=== PATIENT | female | born 1945 | race Caucasian/White ===

== ENCOUNTER 2022-04-27 12:56 | Day surgery (SDC) | payer MEDICARE ==
[~2022-04-27] VITALS: Ht 157.5 cm; Wt 88.5 kg
[2022-04-27] VITALS (8 sets, daily range): BP systolic 100–186; BP diastolic 32–80
[~2022-04-27 12:56] MED LIST: ALBU18HF2 INH; AMLO5TAB PO; ATOR80TA PO; ATR0.5NEB NEB; CARV25TA3 PO; EZET10TA6 PO; FLUT1BLS4 PO; FURO80TA3 PO; HYDR-4070 PO; LEVO25TA2 PO; LISI40TA13 PO; OMEP20CA15 PO; POTA-82 PO; WARF2.5T82 PO
[2022-04-27] MEDS ORDERED: LORazepam 0.5 MG tablet PO PRN (13:20)
[2022-04-27] MEDS ORDERED: normal saline 1,000 ML IV SCH (13:20)
[2022-04-27] MEDS ORDERED: ALBU2.5V13 (13:37)
[2022-04-27] MEDS ORDERED: FURO80TA3 PO (13:42)
[2022-04-27] MEDS ORDERED: HYDR-4070 PO (13:43)
[2022-04-27 14:03] LABS: ALBUMIN 2.8 G/DL (3.4-5.0); ANION GAP 10 (8-16); APTT 34 SECONDS (22-32); BLOOD UREA NITROGEN 42 MG/DL (7-18); BUN/CREATININE RATIO 17.6 (6.6-38.0); CALCIUM 9.4 MG/DL (8.5-10.1); CHLORIDE 111 MMOL/L (99-107); CREATININE 2.38 MG/DL (0.40-0.90); GLUCOSE 94 MG/DL (70-104); POTASSIUM 3.4 MMOL/L (3.5-5.1); SODIUM 143 MMOL/L (135-145); TOTAL CARBON DIOXIDE 21.7 MMOL/L (24-32); eGFR 20 ML/MIN
[2022-04-27 14:04] LABS: BASOPHILS # (AUTO) 0.1 X10'3 (0-0.2); BASOPHILS % (AUTO) 1.2 % (0-1); EOSINOPHILS # (AUTO) 0.1 X10'3 (0-0.9); EOSINOPHILS % (AUTO) 1.1 % (0-6); HEMATOCRIT 34.9 % (35.0-45.0); HEMOGLOBIN 11.2 g/dl (12.0-16.0); LYMPHOCYTES # (AUTO) 1.2 X10'3 (1.1-4.8); LYMPHOCYTES % (AUTO) 15.6 % (21-51); MEAN CORPUSCULAR HEMOGLOBIN 31.4 PG (27.0-31.0); MEAN CORPUSCULAR HGB CONC 32.1 g/dL (33.0-36.5); MEAN CORPUSCULAR VOLUME 97.8 FL (78-98); MEAN PLATELET VOLUME 8.8 FL (7.4-10.4); MONOCYTES # (AUTO) 0.6 X10'3 (0-0.9); NEUTROPHILS # (AUTO) 5.9 X10'3 (1.8-7.7); NEUTROPHILS % (AUTO) 75.1 % (42-75); PLATELET COUNT 244 X10'3 (140-440); RED BLOOD COUNT 3.57 X10'6 (4.20-5.60); RED CELL DISTRIBUTION WIDTH 14.5 % (11.5-14.5); WHITE BLOOD COUNT 7.9 X10'3 (4.5-11.0)
[2022-04-27] MEDS ORDERED: fentaNYL/PF 50MCG/1 ML 2ML syringe ONE (17:18)
[2022-04-27] MEDS ORDERED: LIDOcaine 1% 30ml preserv. free vial ONE (17:18)
[2022-04-27] MEDS ORDERED: midazolam 1 mg/ML 2ml injection ONE (17:18)
[2022-04-27] MEDS ORDERED: iohexol 350 MG/ML 50ML vial IV ONE (17:18)
--- NOTE | 2022-04-27 18:25 | NUR ---
Right groin site with purse string closure in place. Clean dry and intact. Addendum: 04/27/22 at 1903 by Emery Cosby RN Amended: Links added.
[2022-04-27] MEDS ORDERED: HYDROcodone/acetaminophen 10/325mg tab PO PRN (19:30)
[2022-04-27] MEDS ORDERED: HYDROcodone/acetaminophen 5mg/325mg tablet PO PRN (19:30)
--- NOTE | 2022-04-27 19:30 | NUR ---
Purse string closure to right venous site removed. Hemostasis appears to be achieved. Dressing applied. Addendum: 04/27/22 at 1939 by Emery Cosby RN Amended: Links added.
[2022-04-28 06:35] LABS: ISTAT Hct MIX 30 %PCV (35-45); ISTAT O2 SATURATION MIX VENOUS 48 % (60-80); ISTAT SOURCE VEN
== END 2022-04-27 20:10 | disposition home or self-care (01) ==
LOC: SSTAY O 12:56
PROVIDERS: ATTEND Student in an Organized Health Care Education/Training Program
DX: I13.0 Hypertensive heart and chronic kidney disease with heart failure and stage 1 through stage 4 chronic kidney disease, or unspecified chronic kidney disease (principal); I50.32 Chronic diastolic (congestive) heart failure; N18.9 Chronic kidney disease, unspecified; I48.0 Paroxysmal atrial fibrillation; G47.33 Obstructive sleep apnea (adult) (pediatric); J45.909 Unspecified asthma, uncomplicated; E03.9 Hypothyroidism, unspecified; Z88.5 Allergy status to narcotic agent; Z88.8 Allergy status to other drugs, medicaments and biological substances; Z79.899 Other long term (current) drug therapy; Z79.01 Long term (current) use of anticoagulants; Z86.718 Personal history of other venous thrombosis and embolism; Z86.711 Personal history of pulmonary embolism
CPT/HCPCS: 33289; 36415; 80048; 82803; 85014; 85025; 85610; 85730; 93005; 99152; C1751; C1769; C1894; C2624; J1644; J2250; J3010; J3490; J7030; Q9967; 99153; A6258; A6449